=== PATIENT | female | born 1980 | race Caucasian/White ===

== ENCOUNTER 2016-08-13 16:03 | Inpatient (IN) | payer OTHER ==
[2016-08-13] VITALS (39 sets, daily range): BP systolic 107–142; BP diastolic 60–84; PULSE 74–102; RESP 17–18; TEMP 97.8–98.3
[~2016-08-13] VITALS: Ht 149.9 cm; Wt 68.0 kg
[~2016-08-13 16:03] MED LIST: DIPHTH/TETANUS/ACEL PERTUSSIS (BOOSTER) 0.5 ML VIAL/PFS IM ONE; MEASLES, MUMPS, RUBELLA VACCINE 0.5 ML VIAL SQ ONE
[2016-08-13] MEDS ORDERED: LACTATED RINGER'S 1000 ML INJ 1,000 ML IV SCH (16:49)
[2016-08-13] MEDS ORDERED: LACTATED RINGER'S 1000 ML INJ 1,000 ML IV PRN (16:49)
--- NOTE | 2016-08-13 16:54 | HHI.HP ---
HPI Chief Complaint augmentation of labor Date Seen: Aug 13, 2016 Travel History International Travel<30 Days: No Contact w/Intl Traveler<30Days: No Known Affected Area: No History of Present Illness HPI 36 yo with iup at 38w5d who presented to office for BRITTANY visit c/o contractions and pressure. SVE 11/28/-2, change from 3cm prior week. + FM, neg lof or vb. Para: 1 : 3 Miscarriage: 1 History Past Medical History Narrative Medical denies Obstetric History Obstetric History G1 FAVD, c/b GDM, pp depression. Male, 7#1oz G2 MAD req D&C Past Surgical History Narrative Surgical D&C Family History Family History: Negative Social History Alcohol Use: No Tobacco Use: No Substance Abuse: No Allergies-Medications (Allergen,Severity, Reaction): Coded Allergies: No Known Allergies (Unverified , 08/13/16) Review of Systems General / Constitutional: No: Fever, Weight Gain, Chills, Other Eyes: No: Diploplia, Blurred Vision, Visual changes, Pain, Photophobia HENT: No: Headaches, Vertigo, Lightheadedness Cardiovascular: No: Irregular Rhythm, Chest Pain or Discomfort, Palpitations, Tachycardia, Syncope, Varicosities, Edema, Cyanosis Respiratory: No: Cough, Short of Breath, Other Gastrointestinal: No: Nausea, Vomiting, Diarrhea Genitourinary: No: Decreased Urinary Output, Oliguria Musculoskeletal: No: Limited ROM, Weakness, Cramping, Edema, Pain Skin: No Rash, No Itching, No Dryness, No Lumps, No Change in Pigmentation, No Change in Nails, No Alopecia, No Lesions Neurologic: No: Weakness, Dizziness, Syncope, Focal Abnormalities, Coordination Problem, Headache, Slurred Speech, Seizures Psychiatric: No: Depression, Suicidal Ideations, Homicidal Ideation Endocrine: No: Heat Intolerance, Cold Intolerance, Polydipsia, Polyuria, Other Physical Exam Narrative GENERAL: Well-nourished, well-developed patient. SKIN: Warm and dry. HEAD: Normocephalic and atraumatic. EYES: No scleral icterus. No injection or drainage. ENT: No nasal drainage noted. Mucous membranes pink. Airway patent. NECK: Supple, trachea midline. No JVD. CARDIOVASCULAR: Regular rate and rhythm without murmurs, gallops, or rubs. RESPIRATORY: Breath sounds equal bilaterally. No accessory muscle use. ABDOMEN/GI: Abdomen soft, non-tender, bowel sounds present, no rebound, no guarding Gravid to 39 weeks size GENITOURINARY: External Genitalia: intact and normal in appearance Cervix: 525/-2 Presentation: [facility] Membranes: [intact Uterine Contractions: 2-5 min FHT's: Category:I Baseline 140 Reactive: [-] Variability: mod Decels: [-] EXTREMITIES: No cyanosis or edema. BACK: Nontender without obvious deformity. No CVA tenderness. NEUROLOGICAL: Awake and alert. Motor and sensory grossly within normal limits. Five out of 5 muscle strength in all muscle groups. Normal speech. Data Data Orders Admit To Inpatient (08/13/16 ) Vital Signs (Adult) .Per protocol (08/13/16 16:49) Activity Oob Ad Alycia (08/13/16 16:49) ^ Heart (08/13/16 16:49) ^ Amnioinfusion (08/13/16 16:49) Urinary Catheter Management .ONCE (08/13/16 16:49) Diet Liquid (08/13/16 Dinner) Lactated Ringer's 1000 Ml Inj (Lr 1000 M (08/13/16 16:49) Lactated Ringer's 1000 Ml Inj (Lr 1000 M (08/13/16 16:49) Sodium Chlorid 0.9% 500 Ml Inj (Ns 500 M (08/13/16 17:00) Sodium Chlor 0.9% 1000 Ml Inj (Ns 1000 M (08/13/16 17:09) Lidocaine 1% Inj (50 Ml) (Xylocaine 1% I (08/13/16 17:00) Citric Acid-Sodium Citrate Liq (Bicitra (08/13/16 17:00) Ondansetron Inj (Zofran Inj) (08/13/16 17:00) Fentanyl Inj (Fentanyl Inj) (08/13/16 17:00) Fentanyl Inj (Fentanyl Inj) (08/13/16 17:00) Complete Blood Count With Diff (08/13/16 16:49) Hold Clot (08/13/16 16:49) Abo/Rh Blood Type (08/13/16 16:49) Urinalysis - C+S If Indicated (08/13/16 16:49) Resp Oxygen Non Rebreathe Mask (08/13/16 ) Assessment/Plan Assessment and Plan 36 yo with iup at 38w5d being admitted for augmentation of labor at term 1) Augmentation- will AROM and administer pitocin as needed. 2) GDM - diet controlled. BPP 8/ today. 3) Varicella non-immune 4) H/o pp depression- will start ssri in immediate pp period 5) AMA normal cfdna, msafp, and anatomy u/s 6) GBS negative 7) Fetus- cephalic , BPP 8/8 today in office. efw ~7.5-8lb Tara Pimentel MD Aug 13, 2016 16:54
[2016-08-13] MEDS ORDERED: LIDOCAINE HCL 1% 50 ML VIAL I-DERMAL PRN (17:00)
[2016-08-13] MEDS ORDERED: CITRIC ACID-SODIUM CITRATE LIQ 30 ML UDC PO SCH (17:00)
[2016-08-13] MEDS ORDERED: SODIUM CHLORID 0.9% 500 ML INJ 500 ML IV PRN (17:00)
[2016-08-13] MEDS ORDERED: OXYTOCIN 30 UNITS-500ML PREMIX 500 ML IV ONE (17:00)
[2016-08-13] MEDS ORDERED: MINERAL OIL 10 ML VIAL TOPICAL PRN (17:00)
[2016-08-13] MEDS ORDERED: LIDOCAINE HCL 1% 50 ML VIAL INFIL PRN (17:00)
[2016-08-13] MEDS ORDERED: OXYTOCIN 30 UNITS-500ML PREMIX 500 ML IV SCH (17:00)
[2016-08-13] MEDS ORDERED: ONDANSETRON HCL 4 MG/2 ML VIAL IV PRN (17:00)
[2016-08-13] MEDS ORDERED: SODIUM CHLOR 0.9% 1000 ML INJ 1,000 ML IV PRN (17:09)
[2016-08-13 17:15] LABS: AUTOMATED NEUTROPHIL # 6.1 TH/MM3 (1.8-7.7); BASOPHIL % 0.4 % (0.0-2.0); EOSINOPHIL % 0.3 % (0.0-4.0); HEMO FLAGS DIFF FINAL; LYMPH % 21.7 % (9.0-44.0); LYMPHOCYTE # 1.8 TH/MM3 (1.0-4.8); MEAN CELL VOLUME 86.5 FL (80.0-100.0); MEAN CORPUSCULAR HEMOGLOBIN 28.6 PG (27.0-34.0); MEAN CORPUSCULAR HGB CONC 33.1 % (32.0-36.0); MONO % 4.6 % (0.0-8.0); PLATELET COUNT 227 TH/MM3 (150-450); RED BLOOD COUNT 3.82 MIL/MM3 (4.00-5.30); RED CELL DISTRIBUTION WIDTH 14.1 % (11.6-17.2); WHITE BLOOD COUNT 8.3 TH/MM3 (4.0-11.0)
[2016-08-13 17:16] LABS: BACTERIA, URINE RARE /hpf; BLOOD, URINE TRACE (NEG); COMMENT (UR) CULT NOT INDICATED; CULTURE IF INDICATED CULT NOT INDICATED; GLUCOSE,URINE NEG (NEG); KETONE, URINE 10 mg/dL (NEG); NITRITE,URINE NEG (NEG); SQUAMOUS EPITHELIAL CELL URINE <1 /hpf (0-5); URINE COLOR YELLOW (YELLW/STRAW)
[2016-08-13] MEDS ORDERED: PREN29TA PO (19:06)
[2016-08-13] MEDS ORDERED: fentaNYL 2MCG-BUPIV 0.125% INJ 100 ML ONE (19:46)
[2016-08-13] MEDS ORDERED: DO NOT ADMINISTER ANTICOAGULANTS XX PRN (21:00)
[2016-08-13] MEDS ORDERED: fentaNYL 2MCG-BUPIV 0.125% INJ 100 ML EPIDURAL SCH (21:00)
[2016-08-13] MEDS ORDERED: ePHEDrine/NS 50 MG/5 ML SYR IV PRN (21:00)
[2016-08-13] MEDS ORDERED: NO SYSTEM NARCOTICS XX PRN (21:00)
--- NOTE | 2016-08-13 22:59 | PD.OB.DELI ---
Delivery Date: Aug 13, 2016 Anesthesia: Epidural Episiotomy: None Vaginal Delivery: Normal Presentation: Occiput anterior Nuchal Cord: None Delayed cord clamping (45 sec): Yes : Female One Minute : 8 Five Minute : 8 Weight: 3530g Infant Care: Suctioned, Spontaneous crying Placenta: Spontaneous delivery Laceration: 2 deg Repair: Chromic interrupted Additional Information Precipitous delivery performed by Dr. Chu. Second degree repair performed by Dr. Pimentel. Tara Pimentel MD Aug 13, 2016 22:59
[2016-08-13] MEDS ORDERED: ALUMINUM/MAGNESIUM/SIMETH 30 ML CUP PO PRN (23:00)
[2016-08-13] MEDS ORDERED: ONDANSETRON ODT 4 MG TAB PO PRN (23:00)
[2016-08-13] MEDS ORDERED: DOCUSATE SODIUM 50 MG/SENNA 8.6 MG TAB PO PRN (23:00)
[2016-08-13] MEDS ORDERED: oxyCODONE/ACETAMINOPHEN 5 MG/325 MG TAB PO PRN ×2 (23:00)
[2016-08-13] MEDS ORDERED: BENZOCAINE 20% TOPICAL SPRAY 60 ML CAN TOPICAL PRN (23:00)
[2016-08-13] MEDS ORDERED: SODIUM CHLORIDE 0.9% FLUSH 5 ML FLUSH IV PRN (23:00)
[2016-08-13] MEDS ORDERED: WITCH HAZEL 50%/GLYCERIN 12.5% 40 PAD JAR TOPICAL PRN (23:00)
[2016-08-13] MEDS ORDERED: ZOLPIDEM TARTRATE 5 MG TAB PO PRN (23:00)
[2016-08-13] MEDS ORDERED: ACETAMINOPHEN 325 MG TAB PO PRN (23:00)
[2016-08-14] VITALS: BP 112/97; PULSE 81; RESP 18; TEMP 98.7
[2016-08-14] MEDS ORDERED: AMMONIA AROMATIC INHALANT 0.33 ML ONE (02:18)
[2016-08-14 08:00] VITALS: BP 112/75; PULSE 73; RESP 16; TEMP 98.7
[2016-08-14] MEDS: SERTRALINE HCL 50 MG TAB PO SCH (08:17)
[2016-08-14] MEDS: IBUPROFEN 600 MG TAB PO PRN ×3 (08:17→21:19)
[2016-08-14] MEDS ORDERED: SODIUM CHLORIDE 0.9% FLUSH 5 ML FLUSH IV SCH (09:00)
--- NOTE | 2016-08-14 13:03 | HHI.OB ---
Subjective Post Day: 1 Remarks doing well no issues Objective Vitals/I&O Vital Signs Date Time Temp Pulse Resp B/P Pulse Ox O2 Delivery O2 Flow Rate FiO2 08/14/16 08:00 73 112/75 08/14/16 08:00 98.7 16 08/14/16 00:00 81 18 112/97 08/14/16 00:00 98.7 08/14/16 00:00 98.7 08/13/16 23:45 74 117/71 08/13/16 23:35 18 08/13/16 23:30 88 18 08/13/16 23:30 121/74 08/13/16 23:15 89 113/78 08/13/16 23:03 18 08/13/16 23:00 90 120/67 08/13/16 22:58 97.8 18 08/13/16 22:45 83 115/60 08/13/16 22:00 83 18 142/81 08/13/16 21:51 85 129/78 08/13/16 21:31 91 122/80 08/13/16 21:30 88 124/84 08/13/16 21:29 18 08/13/16 21:00 86 112/70 08/13/16 20:53 97.8 08/13/16 20:52 18 08/13/16 20:48 86 113/70 08/13/16 20:30 84 18 118/80 08/13/16 20:28 117/68 08/13/16 20:28 85 08/13/16 20:20 87 08/13/16 20:15 18 08/13/16 20:10 88 08/13/16 20:02 116/71 08/13/16 19:55 83 114/71 08/13/16 19:50 90 131/77 08/13/16 19:45 91 135/83 08/13/16 19:40 89 08/13/16 19:35 85 08/13/16 19:31 18 08/13/16 19:30 78 118/71 08/13/16 19:25 82 08/13/16 19:09 98.0 08/13/16 19:03 18 08/13/16 19:00 90 116/67 08/13/16 18:43 18 08/13/16 18:40 102 107/76 08/13/16 17:07 86 121/77 08/13/16 17:06 86 120/80 08/13/16 17:05 98.3 17 Objective Remarks GENERAL: Well-nourished, well-developed patient. CARDIOVASCULAR: Regular rate and rhythm without murmurs, gallops, or rubs. RESPIRATORY: Breath sounds equal bilaterally. No accessory muscle use. ABDOMEN/GI: Abdomen soft, non-tender. Fundus: Firm, non-tender at umbilicus. GENITOURINARY: Light to moderate bleeding. EXTREMITIES: No cyanosis or edema, non-tender, without signs of DVT. Medications and IVs Current Medications Medications (Trade) Dose Ordered Sig/Jennie Route Start Time Stop Time Status Last Admin (NS Flush) 2 ml BID IV 08/14/16 09:00 08/14/16 08:17 (NS Flush) 2 ml UNSCH PRN IV 08/13/16 23:00 (Tylenol) 650 mg Q4H PRN PO 08/13/16 23:00 (Motrin) 600 mg Q6H PRN PO 08/13/16 23:00 08/14/16 08:17 (Percocet 5-325 Mg) 1 tab Q4H PRN PO 08/13/16 23:00 (Percocet 5-325 Mg) 2 tab Q4H PRN PO 08/13/16 23:00 (Americaine 20% Top Spr) 1 spray Q4H PRN TOPICAL 08/13/16 23:00 (Tucks Pads) 1 applic QID PRN TOPICAL 08/13/16 23:00 (Phoebe-Colace) 2 tab Q12H PRN PO 08/13/16 23:00 (Ambien) 5 mg HS PRN PO 08/13/16 23:00 (Mag-Al Plus Susp Liq) 15 ml Q8H PRN PO 08/13/16 23:00 (Zofran Odt) 4 mg Q6H PRN PO 08/13/16 23:00 (Zoloft) 50 mg DAILY PO 08/14/16 09:00 08/14/16 08:17 Assessment/Plan Assessment and Plan 36 yo with iup at 38w5d being admitted for augmentation of labor at term 1) Augmentation- will AROM and administer pitocin as needed. 2) GDM - diet controlled. BPP 8/8 today. 3) Varicella non-immune 4) H/o pp depression- will start ssri in immediate pp period 5) AMA normal cfdna, msafp, and anatomy u/s 6) GBS negative 7) Fetus- cephalic , BPP 8 today in office. efw ~7.5-8lb Discharge Planning PPD1 pst plan for discharge in am Michelle Moran MD Aug 14, 2016 13:03
[2016-08-14 14:21] VITALS: BP 111/64
[2016-08-14 14:22] VITALS: PULSE 79; RESP 18; TEMP 98.5
[2016-08-15] MEDS: IBUPROFEN 600 MG TAB PO PRN (07:44)
--- NOTE | 2016-08-15 07:58 | HHI.OB ---
Subjective Post Day: 2 Remarks doing well, wants to go home on zoloft 50 mg, bottlefeeding Objective Vitals/I&O Vital Signs Date Time Temp Pulse Resp B/P Pulse Ox O2 Delivery O2 Flow Rate FiO2 08/14/16 14:22 79 18 08/14/16 14:22 98.5 08/14/16 14:21 111/64 08/14/16 08:00 73 112/75 08/14/16 08:00 98.7 16 Objective Remarks GENERAL: Well-nourished, well-developed patient. CARDIOVASCULAR: Regular rate and rhythm without murmurs, gallops, or rubs. RESPIRATORY: Breath sounds equal bilaterally. No accessory muscle use. ABDOMEN/GI: Abdomen soft, non-tender. Fundus: Firm, non-tender at umbilicus. GENITOURINARY: Light to moderate bleeding. EXTREMITIES: No cyanosis or edema, non-tender, without signs of DVT. Medications and IVs Current Medications Medications (Trade) Dose Ordered Sig/Jennie Route Start Time Stop Time Status Last Admin (NS Flush) 2 ml BID IV 08/14/16 09:00 08/14/16 08:17 (NS Flush) 2 ml UNSCH PRN IV 08/13/16 23:00 (Tylenol) 650 mg Q4H PRN PO 08/13/16 23:00 (Motrin) 600 mg Q6H PRN PO 08/13/16 23:00 08/15/16 07:44 (Percocet 5-325 Mg) 1 tab Q4H PRN PO 08/13/16 23:00 (Percocet 5-325 Mg) 2 tab Q4H PRN PO 08/13/16 23:00 (Americaine 20% Top Spr) 1 spray Q4H PRN TOPICAL 08/13/16 23:00 (Tucks Pads) 1 applic QID PRN TOPICAL 08/13/16 23:00 (Phoebe-Colace) 2 tab Q12H PRN PO 08/13/16 23:00 (Ambien) 5 mg HS PRN PO 08/13/16 23:00 (Mag-Al Plus Susp Liq) 15 ml Q8H PRN PO 08/13/16 23:00 (Zofran Odt) 4 mg Q6H PRN PO 08/13/16 23:00 (Zoloft) 50 mg DAILY PO 08/14/16 09:00 08/14/16 08:17 Assessment/Plan Assessment and Plan 36 yo s/p PPD#2 Discharge Planning PPD2 pst plan for discharge today Attending Attestation pt seen by Anya Hernandez MD Aug 15, 2016 07:58
[2016-08-15 08:00] VITALS: BP 134/71; PULSE 7; RESP 18; TEMP 98.3
[2016-08-15] MEDS ORDERED: IBUP-232 PO (08:00)
[2016-08-15] MEDS ORDERED: ZOLO50TA PO (08:00)
--- NOTE | 2016-08-15 08:00 | HHI.DCPOC ---
Discharge Care Plan Your Health Problems Are: Pelvic pain Report Symptoms to Your Doctor -Temperate above 100.5 degrees -Redness, of incision or excessive or foul smelling drainage -Unusual pain or calf pain -Increased vaginal bleeding -Painful or difficulty urinating -Feelings of extreme sadness or anxiety after 2 weeks Goals to Promote Your Health * To prevent worsening of your condition and complications * To maintain your health at the optimal level Directions to Meet Your Goals Take your medications as prescribed Follow your dietary instruction Follow activity as directed Ensure plenty of rest for recovery Drink fluids for hydration Keep your appointments as scheduled Take your immunizations and boosters as scheduled If your symptoms worsen call your PCP, if no PCP go to Urgent Care Center or Emergency Room Smoking is Dangerous to Your Health. Avoid second hand smoke Call the 24-hour crisis hotline for domestic abuse at Anya Ng MD Aug 15, 2016 08:00
[2016-08-15] MEDS: SERTRALINE HCL 50 MG TAB PO SCH (09:04)
== END 2016-08-15 11:34 | disposition home or self-care (01) | DRG 775 ==
LOC: H2EA 16:03 → H2EB 16:27 → H1EA 08-14 01:13
PROVIDERS: ADMIT Obstetrics & Gynecology; ATTEND Obstetrics & Gynecology
PROC: 10E0XZZ Delivery of Products of Conception, External Approach (ICD-10-PCS; principal; 2016-08-13)
PROC: 0KQM0ZZ Repair Perineum Muscle, Open Approach (ICD-10-PCS; 2016-08-13)
PROC: 10907ZC Drainage of Amniotic Fluid, Therapeutic from Products of Conception, Via Natural or Artificial Opening (ICD-10-PCS; 2016-08-13)
PROC: 3E0S3CZ (ICD-10-PCS; 2016-08-13)
PROC: 00HU33Z Insertion of Infusion Device into Spinal Canal, Percutaneous Approach (ICD-10-PCS; 2016-08-13)
DX: O24.420 Gestational diabetes mellitus in childbirth, diet controlled (principal); O09.523 Supervision of elderly multigravida, third trimester; O62.3 Precipitate labor; O70.1 Second degree perineal laceration during delivery; Z3A.38 38 weeks gestation of pregnancy; Z37.0 Single live birth
CPT/HCPCS: 59025; 81001; 85025; 86900; 86901; 90715; J2590; J7120